=== PATIENT | female | born 2000 | race Caucasian/White ===

== ENCOUNTER 2018-05-31 23:56 | Emergency (ER) | payer MEDICAID ==
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
[2018-06-01] MEDS ORDERED: ONDA8TAB13 PO (03:57)
== END 2018-06-01 00:05 | disposition left against medical advice (07) ==
LOC: ER FS 23:56
DX: T74.21XA Adult sexual abuse, confirmed, initial encounter (principal)
CPT/HCPCS: 99281

== ENCOUNTER 2018-06-01 01:00 | Emergency (ER) | payer MEDICAID, OTHER ==
[~2018-06-01] VITALS: Ht 162.6 cm; Wt 95.3 kg
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
[2018-06-01] MEDS ORDERED: ONDANSETRON 4 MG/2 ML (SDV) Z0FRAN ONE (02:41)
[2018-06-01] MEDS ORDERED: LACTATED RINGERS 1,000 ML IV ONE (02:41)
[2018-06-01 03:21] LABS: HEMATOCRIT 37 % (35-52); HEMOGLOBIN 12.7 G/DL (11.5-16.0); MEAN CORPUSCULAR HEMOGLOBIN 29 PG (25-34); MEAN CORPUSCULAR HGB CONC 34 G/DL (32-36); MEAN CORPUSCULAR VOLUME 85 FL (80-99); WHITE BLOOD COUNT 13.2 10^3/uL (4.3-11.0)
[2018-06-01 03:22] LABS: BASOPHILS % (AUTO) 0 % (0-10); EOSINOPHILS # (AUTO) 0.1 10^3/uL (0.0-0.3); EOSINOPHILS % (AUTO) 1 % (0-10); LYMPHOCYTES # (AUTO) 1.6 X 10^3 (1.0-4.0); LYMPHOCYTES % (AUTO) 12 % (12-44); MEAN PLATELET VOLUME 10.6 FL (7.4-10.4); MONOCYTES # (AUTO) 0.9 X 10^3 (0.0-1.0); MONOCYTES % (AUTO) 7 % (0-12); NEUTROPHILS # (AUTO) 10.7 X 10^3 (1.8-7.8); NEUTROPHILS % (AUTO) 81 % (42-75); PLATELET COUNT 295 10^3/uL (130-400); RED CELL DISTRIBUTION WIDTH 12.6 % (10.0-14.5)
[2018-06-01 03:23] LABS: ALANINE AMINOTRANSFERASE 18 U/L (0-55); ALKALINE PHOSPHATASE 62 U/L (40-136); BILIRUBIN,TOTAL 0.3 MG/DL (0.1-1.0); BUN/CREATININE RATIO 10; CARBON DIOXIDE 17 MMOL/L (21-32); CHLORIDE 108 MMOL/L (98-107); CREATININE SERUM 0.59 MG/DL (0.60-1.30); GFR ESTIMATED > 60; GLUCOSE 100 MG/DL (70-105); POTASSIUM 3.7 MMOL/L (3.6-5.0); SODIUM 139 MMOL/L (135-145)
[2018-06-01 03:24] LABS: ALBUMIN 3.7 GM/DL (3.2-4.5); AMYLASE 81 U/L (25-125); LIPASE 4 U/L (8-78); TOTAL PROTEIN 5.8 GM/DL (6.4-8.2)
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
[2018-06-01] MEDS ORDERED: ONDA8TAB13 PO (03:57)
[2018-06-01 04:10] LABS: BILIRUBIN,URINE NEGATIVE (NEGATIVE); CLARITY,URINE CLEAR; COLOR,URINE YELLOW; GLUCOSE, URINE (UA) NEGATIVE (NEGATIVE); KETONES,URINE 4+ (NEGATIVE); LEUKOCYTE ESTERASE ,URINE 1+ (NEGATIVE); NITRITE,URINE NEGATIVE (NEGATIVE); PH,URINE 5 (5-9); PROTEIN,URINE 1+ (NEGATIVE); UROBILINOGEN,URINE NORMAL (NORMAL)
[2018-06-01 04:24] LABS: BACTERIA,URINE TRACE /HPF; CALCIUM OXALATE CRYSTALS,UR FEW /LPF; RBC,URINE RARE /HPF; WBC,URINE RARE /HPF
== END 2018-06-01 04:53 | disposition home or self-care (01) ==
LOC: ER 01:00 → EDUNIT# 01:00 → ER 04:53
DX: O9A.412 Sexual abuse complicating pregnancy, second trimester (principal); O21.9 Vomiting of pregnancy, unspecified; O99.612 Diseases of the digestive system complicating pregnancy, second trimester; K21.9 Gastro-esophageal reflux disease without esophagitis; O99.212 Obesity complicating pregnancy, second trimester; E66.01 Morbid (severe) obesity due to excess calories; O24.912 Unspecified diabetes mellitus in pregnancy, second trimester; O99.342 Other mental disorders complicating pregnancy, second trimester; F41.9 Anxiety disorder, unspecified; F32.9 Major depressive disorder, single episode, unspecified; Z90.49 Acquired absence of other specified parts of digestive tract; Z79.84 Long term (current) use of oral hypoglycemic drugs; Z87.19 Personal history of other diseases of the digestive system; Z98.890 Other specified postprocedural states; Z3A.14 14 weeks gestation of pregnancy; Y07.59 Other non-family member, perpetrator of maltreatment and neglect
CPT/HCPCS: 36415; 80053; 81000; 82150; 83690; 84702; 85025; 86900; 86901

== ENCOUNTER 2021-08-09 06:39 | Emergency (ER) | payer MEDICAID ==
[~2021-08-09] VITALS: Ht 165.1 cm; Wt 154.0 kg
[~2021-08-09 06:39] MED LIST: ONDA8TAB13 PO
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
[2021-08-09 06:59] LABS: BASOPHILS # (AUTO) 0.1 10^3/uL (0.0-0.1); BASOPHILS % (AUTO) 2 % (0-10); EOSINOPHILS # (AUTO) 0.6 10^3/uL (0.0-0.3); EOSINOPHILS % (AUTO) 8 % (0-10); HEMATOCRIT 38 % (35-52); HEMOGLOBIN 12.5 g/dL (11.5-16.0); LYMPHOCYTES # (AUTO) 2.4 10^3/uL (1.0-4.0); LYMPHOCYTES % (AUTO) 33 % (12-44); MEAN CORPUSCULAR HEMOGLOBIN 30 pg (25-34); MEAN CORPUSCULAR HGB CONC 33 g/dL (32-36); MEAN CORPUSCULAR VOLUME 89 fL (80-99); MONOCYTES # (AUTO) 0.7 10^3/uL (0.0-1.0); MONOCYTES % (AUTO) 10 % (0-12); NEUTROPHILS # (AUTO) 3.6 10^3/uL (1.8-7.8); NEUTROPHILS % (AUTO) 48 % (42-75); PLATELET COUNT 244 10^3/uL (130-400); WHITE BLOOD COUNT 7.4 10^3/uL (4.3-11.0)
[2021-08-09 07:19] LABS: ALBUMIN 3.8 GM/DL (3.2-4.5); BILIRUBIN,TOTAL 0.2 MG/DL (0.1-1.0); CALCIUM 8.5 MG/DL (8.5-10.1); CREATININE SERUM 0.49 MG/DL (0.60-1.30); TOTAL PROTEIN 6.7 GM/DL (6.4-8.2)
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
[2021-08-09] MEDS ORDERED: IBUP-1780 PO ×3 (08:25→08:30)
[2021-08-09 08:35] VITALS: BP 147/70
== END 2021-08-09 08:35 | disposition home or self-care (01) ==
LOC: EDUNIT# 06:39 → ER FS 06:43
DX: S16.1XXA Strain of muscle, fascia and tendon at neck level, initial encounter (principal); R51.9 Headache, unspecified; M54.50 Low back pain, unspecified; E66.01 Morbid (severe) obesity due to excess calories; Z68.35 Body mass index [BMI] 35.0-35.9, adult; V47.5XXA Car driver injured in collision with fixed or stationary object in traffic accident, initial encounter
CPT/HCPCS: 36415; 70450; 72125; 72131; 80053; 85025

== ENCOUNTER 2021-12-03 14:44 | Emergency (ER) | payer MEDICAID ==
[~2021-12-03] VITALS: Ht 165 cm; Wt 159.0 kg
[~2021-12-03 14:44] MED LIST changes: +IBUP-1780 PO
[2021-12-03 15:20] LABS: BASOPHILS # (AUTO) 0.1 10^3/uL (0.0-0.1); BASOPHILS % (AUTO) 1 % (0-10); EOSINOPHILS # (AUTO) 0.5 10^3/uL (0.0-0.3); EOSINOPHILS % (AUTO) 6 % (0-10); HEMATOCRIT 38 % (35-52); HEMOGLOBIN 12.8 g/dL (11.5-16.0); LYMPHOCYTES # (AUTO) 1.6 10^3/uL (1.0-4.0); LYMPHOCYTES % (AUTO) 20 % (12-44); MEAN CORPUSCULAR HEMOGLOBIN 29 pg (25-34); MEAN CORPUSCULAR HGB CONC 34 g/dL (32-36); MEAN CORPUSCULAR VOLUME 86 fL (80-99); MEAN PLATELET VOLUME 10.1 fL (9.0-12.2); MONOCYTES # (AUTO) 0.9 10^3/uL (0.0-1.0); MONOCYTES % (AUTO) 11 % (0-12); NEUTROPHILS # (AUTO) 5.1 10^3/uL (1.8-7.8); NEUTROPHILS % (AUTO) 62 % (42-75); PLATELET COUNT 343 10^3/uL (130-400); WHITE BLOOD COUNT 8.1 10^3/uL (4.3-11.0)
[2021-12-03 15:44] LABS: ALANINE AMINOTRANSFERASE 38 U/L (0-55); ALBUMIN 4.1 GM/DL (3.2-4.5); ALKALINE PHOSPHATASE 105 U/L (40-136); BILIRUBIN,TOTAL 0.2 MG/DL (0.1-1.0); BUN/CREATININE RATIO 8; CARBON DIOXIDE 20 MMOL/L (21-32); CHLORIDE 104 MMOL/L (98-107); CREATININE SERUM 0.61 MG/DL (0.60-1.30); GFR ESTIMATED 129; GLUCOSE 105 MG/DL (70-105); POTASSIUM 3.9 MMOL/L (3.6-5.0); SODIUM 138 MMOL/L (135-145); TOTAL PROTEIN 7.1 GM/DL (6.4-8.2)
[2021-12-03 15:45] LABS: ACETAMINOPHEN < 10 UG/ML (10-30); SALICYLATE < 0.3 MG/DL (5.0-20.0)
--- NOTE | 2021-12-03 15:46 | ED Psychosocial ---
General Chief Complaint: Psych/Social Disorder Stated Complaint: PSYCH EVAL Nursing Triage Note: Patient has presented to ER with cc of having suicidal thoughts for the last few day. She has thought about taking an over dose of pills last night. She denies doing anything to harm herself. Source: patient Exam Limitations: no limitations (VIVIANE GALLO) History of Present Illness Date Seen by Provider: Dec 03, 2021 Time Seen by Provider: 15:35 Initial Comments This 21 y/o presents with reported suicidal ideation. Patient states she was sent from her counselor May from [facility] in [place]. Patient states she had a counseling appointment today. Patient states she has had suicidal thoughts for the past week. Patient states her plan was to overdose with tylenol. Patient states in 2018 she had an inpatient stay at [facility] for suicidal attempt with tylenol overdose. Patient states her behavioral health PMHx includes bipolar type I, PTSD, and anxiety. Patient states she takes buspirone, vraylar, metformin, and gabapentin. Patient states she feels as though her medications are not helping. Patient denies thoughts of wanting to hurt anyone else. Patient states she tried marijuana for the first time yesterday. Patient denies this affecting her mood or intents. Patient currently has a 1:1 observer in the room with her. Timing/Duration: other (onset one week ago) Associated Symptoms: anxiety, suicidal ideation (VIVIANE GALLO) Initial Comments Patient reiterates much of the above information during my interview. She reports feeling suicidal for about the past week and continuing to feel suicidal now. She does not believe her medications are working well. She states her plan is to overdose. When asked about access to medications for overdosing, she reports having access to her prescribed medications which she could use to overdose. She believes she needs admission for medication adjustment. She is accompanied by a worker from [facility]. Patient has no physical comp laints. (GUNNAR JOSUE MD) Allergies and Home Medications Allergies Coded Allergies: No Known Drug Allergies (Unverified , 08/09/21) Patient Home Medication List Home Medication List Reviewed: Yes (GUNNAR JOSUE MD) Ibuprofen (Ibuprofen) 800 Mg Tablet, 800 MG PO Q8H PRN for PAIN Prescribed by: Gely guillaume on 08/09/21 0830 Ondansetron (Ondansetron Odt) 8 Mg Tab.rapdis, 8 MG PO Q6H Prescribed by: TING PIERRE on 06/01/18 0357 Review of Systems Constitutional: no symptoms reported EENTM: no symptoms reported Respiratory: no symptoms reported Cardiovascular: no symptoms reported Gastrointestinal: no symptoms reported Genitourinary: no symptoms reported : No Musculoskeletal: no symptoms reported Skin: no symptoms reported Psychiatric/Neurological: See HPI (GUNNAR JOSUE MD) Past Kddykjk-Hlvloe-Whjihm Hx Patient Social History Tobacco Use?: No Use of E-Cig and/or Vaping dev: No Substance use?: Yes Substance type: Marijuana Substance frequency: Once in a while Alcohol Use?: No (VIVIANE GALLO) Seasonal Allergies Seasonal Allergies: No (VIVIANE GALLO) Past Medical History Surgeries: Yes (CLEFT PALATE REPAIR) Gallbladder Respiratory: No Cardiac: No Neurological: No Reproductive Disorders: No Genitourinary: No Gastrointestinal: Yes (S/P RENATA) Gastroesophageal Reflux, Gall Bladder Disease Musculoskeletal: No Endocrine: Yes (MORBID OBESITY) Diabetes, Non-Insulin dep HEENT: No Cancer: No Psychosocial: Yes Anxiety, Depression Integumentary: No Blood Disorders: No (VIVIANE GALLO) Physical Exam Vital Signs - First Documented 12/03/21 15:06 Temp 36.5 Pulse 122 B/P (MAP) 163/112 (129) Pulse Ox 100 O2 Delivery Room Air (GUNNAR JOSUE MD) Capillary Refill : (VIVIANE GALLO) Height, Weight, BMI Height: 5'4.00" Weight: 210lbs. oz. [id number]; 58.00 BMI Method:Stated General Appearance: WD/WN, no apparent distress HEENT: PERRL/EOMI Neurologic/Psychiatric: alert, oriented x 3 Appearance/Memory: appropriate appearance, appropriate insight, no memory impai rment, denies illness Behavior/Eye Contact: cooperative, good eye contact, normal speech Thoughts/Hallucinations: normal thought pattern Skin: normal color (VIVIANE GALLO) Progress/Results/Core Measures Results/Orders Lab Results Laboratory Tests Test 12/03/21 15:00 12/03/21 15:08 Range/Units Urine Color YELLOW Urine Clarity SL CLOUDY Urine pH 6.0 5-9 Urine Specific Finger 1.025 H 1.016-1.022 Urine Protein NEGATIVE NEGATIVE Urine Glucose (UA) NEGATIVE NEGATIVE Urine Ketones NEGATIVE NEGATIVE Urine Nitrite NEGATIVE NEGATIVE Urine Bilirubin NEGATIVE NEGATIVE Urine Urobilinogen 0.2 < = 1.0 MG/DL Urine Leukocyte Esterase 1+ H NEGATIVE Urine RBC (Auto) NEGATIVE NEGATIVE Urine RBC NONE /HPF Urine WBC 0-2 /HPF Urine Squamous Epithelial Cells 10-25 H /HPF Urine Crystals NONE /LPF Urine Bacteria FEW H /HPF Urine Casts NONE /LPF Urine Mucus MODERATE H /LPF Urine Culture Indicated NO Urine Opiates Screen NEGATIVE NEGATIVE Urine Oxycodone Screen NEGATIVE NEGATIVE Urine Methadone Screen NEGATIVE NEGATIVE Urine Propoxyphene Screen NEGATIVE NEGATIVE Urine Barbiturates Screen NEGATIVE NEGATIVE Ur Tricyclic Antidepressants Screen NEGATIVE NEGATIVE Urine Phencyclidine Screen NEGATIVE NEGATIVE Urine Amphetamines Screen NEGATIVE NEGATIVE Urine Methamphetamines Screen NEGATIVE NEGATIVE Urine Benzodiazepines Screen NEGATIVE NEGATIVE Urine Cocaine Screen NEGATIVE NEGATIVE Urine Cannabinoids Screen POSITIVE H NEGATIVE White Blood Count 8.1 4.3-11.0 10^3/uL Red Blood Count 4.36 3.80-5.11 10^6/uL Hemoglobin 12.8 11.5-16.0 g/dL Hematocrit 38 35-52 % Mean Corpuscular Volume 86 80-99 fL Mean Corpuscular Hemoglobin 29 25-34 pg Mean Corpuscular Hemoglobin Concent 34 32-36 g/dL Red Cell Distribution Width 12.1 10.0-14.5 % Platelet Count 343 130-400 10^3/uL Mean Platelet Volume 10.1 9.0-12.2 fL Immature Granulocyte % (Auto) 0 % Neutrophils (%) (Auto) 62 42-75 % Lymphocytes (%) (Auto) 20 12-44 % Monocytes (%) (Auto) 11 0-12 % Eosinophils (%) (Auto) 6 0-10 % Basophils (%) (Auto) 1 0-10 % Neutrophils # (Auto) 5.1 1.8-7.8 10^3/uL Lymphocytes # (Auto) 1.6 1.0-4.0 10^3/uL Monocytes # (Auto) 0.9 0.0-1.0 10^3/uL Eosinophils # (Auto) 0.5 H 0.0-0.3 10^3/uL Basophils # (Auto) 0.1 0.0-0.1 10^3/uL Immature Granulocyte # (Auto) 0.0 0.0-0.1 10^3/uL Sodium Level 138 135-145 MMOL/L Potassium Level 3.9 3.6-5.0 MMOL/L Chloride Level 104 98-107 MMOL/L Carbon Dioxide Level 20 L 21-32 MMOL/L Anion Gap 14 5-14 MMOL/L Blood Urea Nitrogen 5 L 7-18 MG/DL Creatinine 0.61 0.60-1.30 MG/DL Estimat Glomerular Filtration Rate 129 BUN/Creatinine Ratio 8 Glucose Level 105 70-105 MG/DL Calcium Level 9.0 8.5-10.1 MG/DL Corrected Calcium 8.9 8.5-10.1 MG/DL Total Bilirubin 0.2 0.1-1.0 MG/DL Aspartate Amino Transf (AST/SGOT) 27 5-34 U/L Alanine Aminotransferase (ALT/SGPT) 38 0-55 U/L Alkaline Phosphatase 105 40-136 U/L Total Protein 7.1 6.4-8.2 GM/DL Albumin 4.1 3.2-4.5 GM/DL Serum Test, Qualitative NEGATIVE NEGATIVE Salicylates Level < 0.3 L 5.0-20.0 MG/DL Acetaminophen Level < 10 L 10-30 UG/ML Serum Alcohol < 10 <10 MG/DL (GUNNAR JOSUE MD) My Orders Orders - GUNNAR JOSUE MD Ua Culture If Indicated (12/03/21 14:49) Cbc With Automated Diff (12/03/21 14:49) Comprehensive Metabolic Panel (12/03/21 14:49) Alcohol (12/03/21 14:49) Drug Screen Stat (Urine) (12/03/21 14:49) Acetaminophen (12/03/21 14:49) Salicylate (12/03/21 14:49) Ekg Tracing (12/03/21 14:49) Ed Iv/Invasive Line Start (12/03/21 14:49) Monitor-Rhythm Ecg Trace Only (12/03/21 14:49) Hcg,Qualitative Serum (12/03/21 14:49) Covid 19 Inhouse Test (12/03/21 16:44) Influenza A And B By Pcr (12/03/21 16:44) (GUNNAR JOSUE MD) Vital Signs/I&O 12/03/21 15:06 Temp 36.5 Pulse 122 B/P (MAP) 163/112 (129) Pulse Ox 100 O2 Delivery Room Air (GUNNAR JOSUE MD) Blood Pressure Mean: 129 Progress Progress Note : Progress Note Patient has been medically cleared and is awaiting screen. (GUNNAR JOSUE MD) Progress Note : Time: 06:56 Progress Note Patient remained calm, cooperative during her stay. Pending placement. (PA FRANKLIN DO) Progress Note : Time: 09:50 Progress Note Patient was accepted by Dr. Rajeev Chirinos at [facility]. Patient's Mother will transport to [place] for psychiatric care. (MELODIE BLANKENSHIP MD) Initial ECG Impression Date: Dec 03, 2021 Initial ECG Impression Time: 15:10 Initial ECG Rate: 112 Initial ECG Rhythm: S.Tach Comment Mild sinus tachycardia with no ST elevation or depression. No abnormal intervals or axis deviation. (GUNNAR JOSUE MD) Departure Communication (Admissions) Patient remained calm, cooperative during my shift. She was evaluated by psychiatric screener and deemed appropriate for inpatient admission. She has been accepted and ultimately was transferred in otherwise stable condition for (PA FRANKLIN DO) Impression Primary Impression: Suicidal ideation Disposition: 65 XFER TO PSYCH HOSP/UNIT Condition: Stable Transfer Transfer Reason: Exceeds level of care (Psychiatry) Time Spoke to Accepting Phy: 09:50 Transfer Progress Notes Patient accepted by Dr. Rajeev Chirinos for psychiatric admission at [facility] Transfer Facility: [facility] Psych[facility] Method of Transfer: Private Vehicle (Patient's Mother) (MELODIE BLANKENSHIP MD) Departure-Patient Inst. Referrals: RUSSELL GALVIN APRN (PCP) Primary Care Physician ROSE GUADALUPE MD (Family) Primary Care Physician Medical Student Attestation and Attending Note: I have personally interviewed and examined this patient along with Phoebe Gallo, MS 4. I have reviewed student documentation including history, physical, and assessments. I agree with the documentation except where otherwise noted. Exam: General: Alert, oriented, no acute distress, well developed, obese HEENT: Normocephalic and atraumatic, pupils equally round Heart: Regular rate and rhythm without murmur Lungs: Clear to auscultation bilaterally with normal effort Abdomen: Soft, nontender, nondistended Neuropsych: Alert, oriented, no focal deficits, avoids eye contact, reports suicidal ideation, appears to have appropriate insight. Skin: Warm and dry without rashes (GUNNAR JOSUE MD) VIVIANE GALLO Dec 03, 2021 15:46 GUNNAR JOSUE MD Dec 03, 2021 18:30 PA FRANKLIN DO Dec 04, 2021 06:57 MELODIE BLANKENSHIP MD Dec 04, 2021 10:04
[2021-12-03 16:03] LABS: BILIRUBIN,URINE NEGATIVE (NEGATIVE); CLARITY,URINE SL CLOUDY; COLOR,URINE YELLOW; GLUCOSE, URINE (UA) NEGATIVE (NEGATIVE); KETONES,URINE NEGATIVE (NEGATIVE); LEUKOCYTE ESTERASE ,URINE 1+ (NEGATIVE); NITRITE,URINE NEGATIVE (NEGATIVE); PROTEIN,URINE NEGATIVE (NEGATIVE)
[2021-12-03 16:31] LABS: AMPHETAMINE SCREEN, URINE NEGATIVE (NEGATIVE); BARBITURATE SCREEN URINE NEGATIVE (NEGATIVE); BENZODIAZEPINES SCREEN URINE NEGATIVE (NEGATIVE); CANNABINOID SCREEN, URINE POSITIVE (NEGATIVE); COCAINE SCREEN URINE NEGATIVE (NEGATIVE); METHADONE STAT NEGATIVE (NEGATIVE); OPIATE SCREEN URINE NEGATIVE (NEGATIVE); OXYCODONE STAT NEGATIVE (NEGATIVE); PROPOXYPHENE STAT NEGATIVE (NEGATIVE); TRICYCLIC ANTIDEPRESSANTS SCRE NEGATIVE (NEGATIVE)
[2021-12-03 17:00] LABS: BACTERIA,URINE FEW /HPF; WBC,URINE 0-2 /HPF
[2021-12-04 10:26] VITALS: BP 161/97
== END 2021-12-04 11:10 ==
LOC: EDUNIT# 14:44 → ER FS 14:45
DX: R45.851 Suicidal ideations (principal); E66.01 Morbid (severe) obesity due to excess calories; Z68.43 Body mass index [BMI] 50.0-59.9, adult; Z20.822 Contact with and (suspected) exposure to COVID-19; Z28.310 Unvaccinated for COVID-19
CPT/HCPCS: 36415; 80053; 80306; 80320; 80329; 81000; 84703; 85025; 87636; 93005

== ENCOUNTER 2022-10-31 14:43 | Emergency (ER) | payer MEDICAID ==
[~2022-10-31] VITALS: Ht 165.1 cm; Wt 148.3 kg
[2022-10-31 14:50] VITALS: BP 138/87
[2022-10-31] MEDS ORDERED: DICYCLOMINE 10 MG/ML 2 ML AMPULE IM STA (14:58)
[2022-10-31] MEDS ORDERED: NS IV 1000 ML 1,000 ML IV STA (14:58)
[2022-10-31 15:04] LABS: CLARITY,URINE CLOUDY; COLOR,URINE YELLOW; PH,URINE 7.5 (5-9)
[2022-10-31 15:05] LABS: BACTERIA,URINE LARGE /HPF; BILIRUBIN,URINE NEGATIVE (NEGATIVE); GLUCOSE, URINE (UA) NEGATIVE (NEGATIVE); KETONES,URINE NEGATIVE (NEGATIVE); LEUKOCYTE ESTERASE ,URINE NEGATIVE (NEGATIVE); NITRITE,URINE NEGATIVE (NEGATIVE); PROTEIN,URINE NEGATIVE (NEGATIVE)
--- NOTE | 2022-10-31 15:22 | ED Abdominal Pain ---
General Chief Complaint: Abdominal/GI Problems Stated Complaint: ABD PAIN Nursing Triage Note: Patient reports she has had loose stools and abdominal cramping since Wednesday. She states she was recently diagnosed with colitis and is still discerning what foods cause flares. She states she went to walk-in care today and received a toradol injection, but is still having discomfort. Source of Information: Patient History of Present Illness Date Seen by Provider: Oct 31, 2022 Time Seen by Provider: 14:58 Initial Comments 22-year-old female presenting with complaints of diffuse abdominal cramping and pain since Wednesday. She states that she has also had loose stools. She was concerned about having colitis flareup since she was recently diagnosed with colitis on her colonoscopy done in [place]. She had gone to a walk-in care today and received a Toradol shot which she says is helping but has not totally resolved her symptoms. She denies having nausea, vomiting, pain with urination, blood in her stools. She states she had some similar symptoms a month ago and was seen at [place] in the emergency department. She was started on pain medicine and antibiotics and got better. Then when they did the colonoscopy they did a biopsy and told her she had colitis. She states that she lost that paperwork so she is unsure what type of colitis she has. Timing/Duration: 1 Week Severity/Quality: Severe, Cramping Location: Generalized Abdomen Modifying Factors: Worsens With Eating, Worsens With Palpation Associated Symptoms: No Back Pain, No Chest Pain, No Diaphoresis, No Fever/Chills, No Fatigue, No Headache, No Heartburn, No Nausea/Vomiting, No Rash, No Shortness of Air, No Swelling/Mass in Abdomen, No Syncope, No Weakness Allergies and Home Medications Allergies Coded Allergies: Penicillins (Verified Allergy, Severe, throat swelling, hives, 10/31/22) prednisone (Verified Allergy, Severe, throat swelling, hives, 10/31/22) Patient Home Medication List Home Medication List Reviewed: Yes Dicyclomine HCl (Dicyclomine HCl) 10 Mg Capsule, 10 MG PO Q6H PRN for abdominal pain/cramping Prescribed by: MELODIE BLANKENSHIP on 10/31/22 1641 Ibuprofen (Ibuprofen) 800 Mg Tablet, 800 MG PO Q8H PRN for PAIN Prescribed by: Gely guillaume on 08/09/21 0830 Ibuprofen (Ibuprofen) 800 Mg Tablet, 800 MG PO Q8H PRN for PAIN Prescribed by: MELODIE BLANKENSHIP on 10/31/22 1641 Ondansetron (Ondansetron Odt) 8 Mg Tab.rapdis, 8 MG PO Q6H Prescribed by: TING PIERRE on 06/01/18 0357 Review of Systems Review of Systems Constitutional: No chills, No fever EENTM: No Symptoms Reported Respiratory: No Symptoms Reported Cardiovascular: No Symptoms Reported Gastrointestinal: See HPI Genitourinary: Denies Burning, Denies Flank Pain Musculoskeletal: no symptoms reported Skin: no symptoms reported Psychiatric/Neurological: No Symptoms Reported Past Vybdswd-Odwnbx-Wryphy Hx Patient Social History Tobacco Use?: No Substance use?: No Alcohol Use?: Yes Pt feels they are or have been: No Seasonal Allergies Seasonal Allergies: No Past Medical History Surgery/Hospitalization HX: colitis, Margie's, HTN, high cholesterol, pre-diabetes Surgeries: Yes (CLEFT PALATE REPAIR) Gallbladder Respiratory: No Cardiac: No Neurological: No Reproductive Disorders: No Genitourinary: No Gastrointestinal: Yes (S/P RENATA) Gastroesophageal Reflux, Gall Bladder Disease Musculoskeletal: No Endocrine: Yes (MORBID OBESITY) Diabetes, Non-Insulin dep HEENT: No Cancer: No Psychosocial: Yes Anxiety, Depression Integumentary: No Blood Disorders: No Physical Exam Vital Signs Vital Signs - First Documented 10/31/22 14:50 Temp 36.6 Pulse 89 Resp 16 B/P (MAP) 138/87 (104) Pulse Ox 99 O2 Delivery Room Air Capillary Refill : Less Than 3 Seconds Height/Weight/BMI Height: 5'4.00" Weight: 210lbs. oz. [id number]; 54.00 BMI Method:Stated General Appearance: WD/WN, no apparent distress, obese HEENT: PERRL/EOMI, pharynx normal Neck: non-tender, full range of motion, supple, normal inspection Respiratory: chest non-tender, lungs clear, normal breath sounds Cardiovascular: normal peripheral pulses, regular rate, rhythm Gastrointestinal: normal bowel sounds, soft, no pulsatile mass; No guarding, No rebound; tenderness (Complains of diffuse tenderness but states that it is worse around her bellybutton) Rectal: deferred Extremities: normal range of motion, non-tender, normal capillary refill Back: no CVA tenderness, no vertebral tenderness Neurologic/Psychiatric: alert, oriented x 3 Skin: normal color, warm/dry Progress/Results/Core Measures Results/Orders Lab Results Laboratory Tests Test 10/31/22 14:30 10/31/22 15:18 Range/Units Urine Color YELLOW Urine Clarity CLOUDY Urine pH 7.5 5-9 Urine Specific [place] 1.015 L 1.016-1.022 Urine Protein NEGATIVE NEGATIVE Urine Glucose (UA) NEGATIVE NEGATIVE Urine Ketones NEGATIVE NEGATIVE Urine Nitrite NEGATIVE NEGATIVE Urine Bilirubin NEGATIVE NEGATIVE Urine Urobilinogen 1.0 < = 1.0 MG/DL Urine Leukocyte Esterase NEGATIVE NEGATIVE Urine RBC (Auto) NEGATIVE NEGATIVE Urine RBC NONE /HPF Urine WBC NONE /HPF Urine Squamous Epithelial Cells 10-25 H /HPF Urine Crystals NONE /LPF Urine Bacteria LARGE H /HPF Urine Casts NONE /LPF Urine Mucus NEGATIVE /LPF Urine Culture Indicated YES White Blood Count 11.4 H 4.3-11.0 10^3/uL Red Blood Count 4.21 3.80-5.11 10^6/uL Hemoglobin 12.3 11.5-16.0 g/dL Hematocrit 37 35-52 % Mean Corpuscular Volume 88 80-99 fL Mean Corpuscular Hemoglobin 29 25-34 pg Mean Corpuscular Hemoglobin Concent 33 32-36 g/dL Red Cell Distribution Width 11.9 10.0-14.5 % Platelet Count 291 130-400 10^3/uL Mean Platelet Volume 10.0 9.0-12.2 fL Immature Granulocyte % (Auto) 0 % Neutrophils (%) (Auto) 76 H 42-75 % Lymphocytes (%) (Auto) 15 12-44 % Monocytes (%) (Auto) 7 0-12 % Eosinophils (%) (Auto) 1 0-10 % Basophils (%) (Auto) 1 0-10 % Neutrophils # (Auto) 8.7 H 1.8-7.8 10^3/uL Lymphocytes # (Auto) 1.7 1.0-4.0 10^3/uL Monocytes # (Auto) 0.8 0.0-1.0 10^3/uL Eosinophils # (Auto) 0.1 0.0-0.3 10^3/uL Basophils # (Auto) 0.1 0.0-0.1 10^3/uL Immature Granulocyte # (Auto) 0.0 0.0-0.1 10^3/uL Sodium Level 140 135-145 MMOL/L Potassium Level 3.6 3.6-5.0 MMOL/L Chloride Level 106 98-107 MMOL/L Carbon Dioxide Level 24 21-32 MMOL/L Anion Gap 10 5-14 MMOL/L Blood Urea Nitrogen 11 7-18 MG/DL Creatinine 0.56 L 0.60-1.30 MG/DL Estimat Glomerular Filtration Rate 131 BUN/Creatinine Ratio 20 Glucose Level 102 70-105 MG/DL Calcium Level 8.5 8.5-10.1 MG/DL Corrected Calcium 8.7 8.5-10.1 MG/DL Total Bilirubin 0.4 0.1-1.0 MG/DL Aspartate Amino Transf (AST/SGOT) 14 5-34 U/L Alanine Aminotransferase (ALT/SGPT) 14 0-55 U/L Alkaline Phosphatase 87 40-136 U/L Total Protein 6.4 6.4-8.2 GM/DL Albumin 3.7 3.2-4.5 GM/DL Lipase 21 8-78 U/L My Orders Orders - MELODIE BLANKENSHIP MD Ua Culture If Indicated (10/31/22 14:55) Urine Bedside (10/31/22 14:55) Comprehensive Metabolic Panel (10/31/22 14:58) Lipase (10/31/22 14:58) Ed Iv/Invasive Line Start (10/31/22 14:58) Cbc With Automated Diff (10/31/22 14:58) Ct Abdomen/Pelvis W (10/31/22 14:58) Ns Iv 1000 Ml (Ns Iv 1000 Ml) (10/31/22 14:58) Dicyclomine Injection (Dicyclomine Injec (10/31/22 14:58) Urinalysis (10/31/22 14:30) Urine Culture (10/31/22 14:30) Iohexol Injection (Omnipaque 350 Mg/Ml 1 (10/31/22 15:30) Received Contrast (Hold Metformin- Contr (10/31/22 15:30) Ns (Ivpb) 100 Ml (Sodium Chloride 0.9% 1 (10/31/22 15:30) Medications Given in ED Current Medications Medications Dose Ordered Sig/Catherine Route Start Time Stop Time Status Last Admin Dose Admin Iohexol 75 ml ONCE ONCE IV 10/31/22 15:30 10/31/22 15:31 DC 10/31/22 16:09 95 ML Sodium Chloride 100 ml ONCE ONCE IV 10/31/22 15:30 10/31/22 15:31 DC 10/31/22 16:10 80 ML Vital Signs/I&O 10/31/22 14:50 Temp 36.6 Pulse 89 Resp 16 B/P (MAP) 138/87 (104) Pulse Ox 99 O2 Delivery Room Air Blood Pressure Mean: 104 Progress Progress Note #1: Progress Note Differential diagnosis includes colitis, gastroenteritis, diarrhea, diverticulitis. Obtain basic labs with peripheral IV access and send for complete blood count, comprehensive metabolic profile, lipase. Urinalysis and bedside urine test. CT scan of the abdomen and pelvis with IV contrast to look for colitis, diverticulitis, abdominal pathology. Administer normal saline 1 L IV fluid bolus for hydration and Bentyl or dicyclomine 20 mg IM x1 for abdominal cramping and spasms. Progress Note #2: Progress Note Complete blood count does not show elevated white blood cell count. The comprehensive metabolic profile did not show any acute electrolyte abnormalities. Urinalysis had large bacteria with negative Nitrites and negative LE along with 10-25 epithelial cells so may be more contamination. Patient denies dysuria or UTI symptoms. A culture was reflexed based on the large bacteria. CT scan of the abdomen and pelvis was negative for colitis. She did have a small cyst on the left ovary. When reviewing results with the patient she reports that her pain had resolved after the Bentyl shot. Patient advised that the CT and labs were not showing signs of severe infection or active colitis that would require an antibiotic. We will discharge on Bentyl or dicyclomine by mouth 10 mg p.o. every 6 hours as needed abdominal pain, spasms. Also ibuprofen 800 mg every 8 hours as needed for pain and inflammation. If the urine culture comes back showing that she needs an antibiotic will contact patient and send in a prescription for an antibiotic for the urine. Diagnostic Imaging Diagonstic Imaging: CT Plain Films/CT/US/NM/MRI: abdomen, pelvis Comments [facility] [place], [place] NAME: CHAD DAVIS Albert [facility] REC#: [id number] PT STATUS: REG ER : 2000 PHYSICIAN: MELODIE BLANKENSHIP MD ADMIT DATE: 10/31/22/ER FS Signed Date of Exam:10/31/22 CT ABDOMEN/PELVIS W PROCEDURE: CT abdomen and pelvis with contrast. TECHNIQUE: Multiple contiguous axial images were obtained through the abdomen and pelvis after administration of intravenous contrast. Auto Exposure Controls were utilized during the CT exam to meet ALARA standards for radiation dose reduction. All CT scans use one or more of the following dose optimizing techniques: automated exposure control, MA and/or KvP adjustment based on patient size and exam type or iterative reconstruction. INDICATION: Abdominal pain and cramping, history of colitis. COMPARISON: None. FINDINGS: Lung bases are clear. The heart is normal in size. There is no pericardial effusion. The liver demonstrates no focal lesion. There is mild fatty infiltration along the falciform ligament. Cholecystectomy clips are noted. The spleen appears normal. The pancreas demonstrates moderate fatty atrophy. The adrenal glands are normal. The kidneys demonstrate no enhancing lesion and no hydronephrosis. The appendix is normal. The bowel loops are nondistended without obstruction. No free fluid or free air is seen. There is a small hemorrhagic or involuting cyst in the left ovary measuring about 1.5 cm. No acute osseous abnormality is seen. IMPRESSION: 1. No acute abnormality is seen in the abdomen or pelvis. 2. Small hemorrhagic or involuting cyst of the left ovary. Dictated by: Dictated on workstation # [id number] Dict: 10/31/22 1613 Trans: 10/31/22 1627 [facility] [id number] Interpreted by: GHASSAN WILSON MD Electronically signed by: GHASSAN WILSON MD 10/31/22 1627 Reviewed: Reviewed by Me Departure Impression Primary Impression: Abdominal cramping Additional Impression: Left ovarian cyst Disposition: 01 HOME, SELF-CARE Condition: Improved Departure-Patient Inst. Decision time for Depature: 16:38 Referrals: RUSSELL GALVIN APRN (PCP) Primary Care Physician ROSE GUADALUPE MD (Family) Primary Care Physician Patient Instructions: Abdominal Pain, Adult ED, [place] Diet, Ovarian Cyst ED Add. Discharge Instructions: The CT scan and labs did not show signs of infection or flare of colitis that would require antibiotics at this time. Try taking the bentyl (dicyclomine) to help with pain and spasms. Try following a liquid or bland diet. Check back with your GI doctor in [place] about concern for colitis. Take anti-inflammatory medicine to help with pain. All discharge instructions reviewed with patient and/or family. Voiced understanding. Scripts Dicyclomine HCl (Dicyclomine HCl) 10 Mg Capsule 10 MG PO Q6H PRN for abdominal pain/cramping for 7 Days, #28 CAP 0 Refills Prov: MELODIE BLANKENSHIP MD 10/31/22 Ibuprofen (Ibuprofen) 800 Mg Tablet 800 MG PO Q8H PRN for PAIN for 10 Days, #30 TAB 0 Refills Prov: MELODIE BLANKENSHIP MD 10/31/22 MELODIE BLANKENSHIP MD Oct 31, 2022 15:22
[2022-10-31 15:23] LABS: BASOPHILS # (AUTO) 0.1 10^3/uL (0.0-0.1); BASOPHILS % (AUTO) 1 % (0-10); EOSINOPHILS # (AUTO) 0.1 10^3/uL (0.0-0.3); EOSINOPHILS % (AUTO) 1 % (0-10); HEMATOCRIT 37 % (35-52); HEMOGLOBIN 12.3 g/dL (11.5-16.0); LYMPHOCYTES # (AUTO) 1.7 10^3/uL (1.0-4.0); LYMPHOCYTES % (AUTO) 15 % (12-44); MEAN CORPUSCULAR HEMOGLOBIN 29 pg (25-34); MEAN CORPUSCULAR HGB CONC 33 g/dL (32-36); MEAN CORPUSCULAR VOLUME 88 fL (80-99); MONOCYTES # (AUTO) 0.8 10^3/uL (0.0-1.0); MONOCYTES % (AUTO) 7 % (0-12); NEUTROPHILS # (AUTO) 8.7 10^3/uL (1.8-7.8); NEUTROPHILS % (AUTO) 76 % (42-75); PLATELET COUNT 291 10^3/uL (130-400); WHITE BLOOD COUNT 11.4 10^3/uL (4.3-11.0)
[2022-10-31] MEDS ORDERED: HOLD METFORMIN - RECEIVED CONTRAST 20 ML VIAL IV SCH (15:30)
[2022-10-31] MEDS ORDERED: IOHEXOL 350 MG/ML 100 ML (OMNIPAQUE 350) VIAL IV ONE (15:30)
[2022-10-31] MEDS ORDERED: NS 100 ML (IVPB) BAG IV ONE (15:30)
[2022-10-31 15:48] LABS: POTASSIUM 3.6 MMOL/L (3.6-5.0)
[2022-10-31 15:49] LABS: ALBUMIN 3.7 GM/DL (3.2-4.5); BILIRUBIN,TOTAL 0.4 MG/DL (0.1-1.0); CALCIUM 8.5 MG/DL (8.5-10.1); CREATININE SERUM 0.56 MG/DL (0.60-1.30); TOTAL PROTEIN 6.4 GM/DL (6.4-8.2)
--- NOTE | 2022-10-31 16:22 | Diagnostic Imaging Report ---
PROCEDURE: CT abdomen and pelvis with contrast. TECHNIQUE: Multiple contiguous axial images were obtained through the abdomen and pelvis after administration of intravenous contrast. Auto Exposure Controls were utilized during the CT exam to meet ALARA standards for radiation dose reduction. All CT scans use one or more of the following dose optimizing techniques: automated exposure control, MA and/or KvP adjustment based on patient size and exam type or iterative reconstruction. INDICATION: Abdominal pain and cramping, history of colitis. COMPARISON: None. FINDINGS: Lung bases are clear. The heart is normal in size. There is no pericardial effusion. The liver demonstrates no focal lesion. There is mild fatty infiltration along the falciform ligament. Cholecystectomy clips are noted. The spleen appears normal. The pancreas demonstrates moderate fatty atrophy. The adrenal glands are normal. The kidneys demonstrate no enhancing lesion and no hydronephrosis. The appendix is normal. The bowel loops are nondistended without obstruction. No free fluid or free air is seen. There is a small hemorrhagic or involuting cyst in the left ovary measuring about 1.5 cm. No acute osseous abnormality is seen. IMPRESSION: 1. No acute abnormality is seen in the abdomen or pelvis. 2. Small hemorrhagic or involuting cyst of the left ovary. Dictated by: Dictated on workstation # [id number]
[2022-10-31] MEDS ORDERED: IBUP-1780 PO (16:41)
[2022-10-31] MEDS ORDERED: DICY-11 PO (16:41)
== END 2022-10-31 17:19 | disposition home or self-care (01) ==
LOC: EDUNIT# 14:43 → ER FS 14:44
DX: N83.202 Unspecified ovarian cyst, left side (principal); E66.01 Morbid (severe) obesity due to excess calories; Z68.43 Body mass index [BMI] 50.0-59.9, adult
CPT/HCPCS: 36415; 74177; 80053; 81000; 83690; 84703; 85025; 87088; Q9967